=== PATIENT | female | born 1990 | race Two or more races ===

== ENCOUNTER 2018-09-09 17:12 | Inpatient (IN) | payer OTHER ==
[~2018-09-09] VITALS: Ht 152.4 cm; Wt 55.8 kg
[2018-09-09] MEDS ORDERED: DIALYVITE 800-1 EACH PO (17:53)
== END 2018-09-14 11:07 | disposition home or self-care (01) | DRG 819 ==
LOC: LDR 17:12 → OB/GYN 17:12
PROC: 0UVC7ZZ Restriction of Cervix, Via Natural or Artificial Opening (ICD-10-PCS; principal; 2018-09-09)
PROC: 4A1HXCZ Monitoring of Products of Conception, Cardiac Rate, External Approach (ICD-10-PCS; 2018-09-09)
DX: O34.32 Maternal care for cervical incompetence, second trimester (principal); O26.872 Cervical shortening, second trimester; Z34.02 Encounter for supervision of normal first pregnancy, second trimester

== ENCOUNTER 2020-05-16 06:43 | Day surgery (SDC) | payer OTHER ==
[~2020-05-16 06:43] MED LIST: DIALYVITE 800-1 EACH PO; KETO10TA2 PO; OXYC1TAB9 PO; PRENATABS FA T1 EACH PO
== END 2020-05-16 16:05 | disposition home or self-care (01) ==
LOC: CIR.AMB 06:43
PROVIDERS: ATTEND Obstetrics & Gynecology
DX: O34.32 Maternal care for cervical incompetence, second trimester (principal); Z20.828 Contact with and (suspected) exposure to other viral communicable diseases

== ENCOUNTER 2020-11-02 09:15 | Inpatient (IN) | payer OTHER ==
[~2020-11-02] VITALS: Ht 152.4 cm; Wt 3.2 kg
[2020-11-07] MEDS ORDERED: FOLIC ACID0.8 M1 (10:50)
== END 2020-11-10 14:52 | disposition home or self-care (01) | DRG 786 ==
LOC: OB/GYN 11-07 07:48 → O/R 11-07 07:48 → OB/GYN 11-07 09:15
PROVIDERS: ADMIT Obstetrics & Gynecology Maternal & Fetal Medicine; ATTEND Obstetrics & Gynecology Maternal & Fetal Medicine
PROC: 0UCC7ZZ Extirpation of Matter from Cervix, Via Natural or Artificial Opening (ICD-10-PCS; 2020-11-07)
PROC: 4A1HXFZ Monitoring of Products of Conception, Cardiac Rhythm, External Approach (ICD-10-PCS; 2020-11-07)
PROC: 10D00Z1 Extraction of Products of Conception, Low, Open Approach (ICD-10-PCS; principal; 2020-11-07 10:30)
DX: O34.211 Maternal care for low transverse scar from previous cesarean delivery (principal); O34.33 Maternal care for cervical incompetence, third trimester; Z3A.39 39 weeks gestation of pregnancy; Z37.0 Single live birth; Z20.822 Contact with and (suspected) exposure to COVID-19